=== PATIENT | female | born 1960 ===

== ENCOUNTER 2018-01-12 10:25 | Inpatient (IN) | payer OTHER ==
[2018-01-12 10:37] VITALS: BMI 24.8
[2018-01-12] MEDS ORDERED: Sodium Chloride 0.9% 1,000 ML IV STA (10:55)
[2018-01-12 11:42] LABS: BASO # 0.08 K/mm3 (0.0-2.0); EOS # 0.7 (0.0-0.7); EOS % 8.3 % (1.5-5.0); GRAN # 5.16 (1.4-6.5); GRAN % 63.9 % (50.0-68.0); HEMOGLOBIN 14.2 g/dL (12.0-16.0); LYMPH # 1.8 (1.2-3.4); LYMPH % 22.1 % (22.0-35.0); MEAN CELL VOLUME 87.9 fl (80.0-105.0); MEAN CORPUSCULAR HEMOGLOBIN 28.7 pg (25.0-35.0); MEAN CORPUSCULAR HGB CONC 32.6 g/dl (31.0-37.0); MEAN PLATELET VOLUME 8.9 fl (7.0-11.0); MONO # 0.4 (0.1-0.6); MONO % 4.7 % (1.0-6.0); RBC 4.95 10^6/uL (3.5-6.1); RED CELL DISTRIBUTION WIDTH 13.9 % (11.5-14.5); WHITE BLOOD COUNT 8.1 10^3/uL (4.5-11.0)
[2018-01-12 11:46] LABS: ALB/GLOB RATIO 1.2 (1.1-1.8); ALBUMIN 4.1 g/dL (3.0-4.8); CALCIUM 9.5 mg/dL (8.4-10.5)
--- NOTE | 2018-01-12 11:52 | ED PDOC ---
Arrival/HPI - General Chief Complaint: Back Pain Time Seen by Provider: 01/12/18 10:40 - History of Present Illness Narrative History of Present Illness (Text): 57 y/o female with PMH of gout, HTN, and hypothyroidism presents to the ED c/o left-sided thoracic back pain with radiation to the left chest x 1 week. Pain is intermittent, at times severe, and not associated with movement or breathing. Has been using heating pads for pain without relief. States she saw her PMD Dr. Plata on Sunday and had a normal EKG. Pt was switched to Atenolol for her HTN, which she started on Sunday, taken this morning, unsure of dose. Also admits that her routine bloodwork in October showed a "problem with her kidneys" and she was advised to followup with urology, which she never did. Denies fever, chills, SOB, cough, palpitations, diaphoresis, arm pain, jaw pain, dizziness, vision changes, neck pain, rash, abdominal pain, N/V/D. Past Medical History - Provider Review Nursing Documentation Reviewed: Yes - Reproductive Menopause: Yes - Cardiac Hx Hypertension: Yes - Pulmonary Hx Respiratory Disorders: No - Neurological Hx Neurological Disorder: No - HEENT Hx HEENT Disorder: No - Endocrine/Metabolic Hx Hypothyroidism: Yes - Hematological/Oncological Hx Blood Disorders: No - Integumentary Hx Dermatological Disorder: No - Musculoskeletal/Rheumatological Hx Back Pain: Yes Hx Gout: Yes - Gastrointestinal Hx Gastrointestinal Disorders: No - Genitourinary/Gynecological Hx Genitourinary Disorders: No - Psychiatric Hx Psychophysiologic Disorder: No Hx Substance Use: No - Anesthesia Hx Anesthesia: No Family/Social History - Physician Review Nursing Documentation Reviewed: Yes Family/Social History: No Known Family HX Smoking Status: Never Smoked Hx Alcohol Use: No Hx Substance Use: No Allergies/Home Meds Allergies/Adverse Reactions: Allergies No Known Allergies Allergy (Verified 01/12/18 10:48) Home Medications: Home Meds Medication Instructions Recorded Confirmed Atenolol [Tenormin] 25 mg DAILY 01/12/18 01/12/18 Colchicine [Colcrys] 0.6 mg PO DAILY 01/12/18 01/12/18 Levothyroxine [Synthroid] 75 mcg PO DAILY 01/12/18 01/12/18 Review of Systems - Physician Review All systems were reviewed & negative as marked: Yes - Review of Systems Constitutional: Normal Eyes: Normal ENT: Normal Respiratory: Normal. absent: SOB, Cough Cardiovascular: Chest Pain. absent: Palpitations Gastrointestinal: Normal. absent: Abdominal Pain, Nausea, Vomiting Genitourinary Female: Normal Musculoskeletal: Back Pain. absent: Neck Pain Skin: Normal. absent: Rash Neurological: Normal. absent: Headache, Dizziness Endocrine: Normal Hemo/Lymphatic: Normal Psychiatric: Normal Physical Exam Vital Signs Reviewed: Yes Vital Signs Temp Pulse Resp BP Pulse Ox 01/12/18 10:37 98.1 F 48 L 16 150/83 98 01/12/18 10:36 98.1 F 48 L 16 150/83 98 Temperature: Afebrile Blood Pressure: Normal Pulse: Bradycardic Respiratory Rate: Normal Appearance: Positive for: Well-Appearing, Non-Toxic, Comfortable Pain Distress: None Mental Status: Positive for: Alert and Oriented X 3 - Systems Exam Head: Present: Atraumatic, Normocephalic Pupils: Present: PERRL Extroacular Muscles: Present: EOMI Conjunctiva: Present: Normal Mouth: Present: Moist Mucous Membranes Neck: Present: Normal Range of Motion Respiratory/Chest: Present: Clear to Auscultation, Good Air Exchange. No: Respiratory Distress, Accessory Muscle Use, Wheezes, Decreased Breath Sounds, Rales, Retracting, Rhonchi Cardiovascular: Present: Regular Rate and Rhythm, Normal S1, S2, Peripheal Pulses Present. No: Murmurs Abdomen: No: Tenderness, Distention, Peritoneal Signs Back: Present: Normal Inspection. No: Paraspinal Tenderness Upper Extremity: Present: Normal Inspection, Normal ROM, NORMAL PULSES, Capillary Refill < 2s. No: Cyanosis, Edema Lower Extremity: Present: Normal Inspection, NORMAL PULSES, Normal ROM, Capillary Refill < 2 s. No: Edema Neurological: Present: GCS=15, CN II-XII Intact, Speech Normal, Motor Func Grossly Intact, Normal Sensory Function, Gait Normal Skin: Present: Warm, Dry, Normal Color. No: Rashes Psychiatric: Present: Alert, Oriented x 3, Normal Insight, Normal Concentration, Normal Affect, Normal Mood Medical Decision Making ED Course and Treatment: Initial Plan: * EKG * CBC, CMP * Troponin, CK * UA, culture * Dimer EKG: rate 51; sinus bradycardia; normal intervals; no ST elevations or T wave inversions CXR: no acute disease CBC: wnl CMP: BUN 36 Creat 2.0 Troponin: 0.07 CK: wnl UA: blood, leukesterase, protein Dimer: elevated With elevated Dimer and findings of kidney injury, will get V/Q perfusion scan to r/o PE. V/Q scan results: low risk for PE 15:[address] Guevara, who accepts patient for inpatient admission to remote telemetry with diagnosis of UTI, renal failure, and bradycardia. Recommends renal ultrasound and diet orders, along with treatment of UTI with 1g Rocephin IV. Plan of care discussed with patient and family who agree with decision of admission. Patient verbalizes understanding of discussion. Patient A&Ox3, ambulating with steady gait, vitals stable. - Lab Interpretations Lab Results: 01/12/18 11:11 01/12/18 11:11 Lab Results 01/12/18 11:11: Sodium 142, Potassium 4.7, Chloride 109 H, Carbon Dioxide 22, Anion Gap 15, BUN 36 H, Creatinine 2.0 H, Est GFR ( Amer) 31, Est GFR (Non-Af Amer) 26, Random Glucose 103, Calcium 9.5, Total Bilirubin 0.5, AST 22, ALT 20, Alkaline Phosphatase 90, Troponin I Pending, Total Protein 7.6, Albumin 4.1, Globulin 3.5, Albumin/Globulin Ratio 1.2 01/12/18 11:11: WBC 8.1, RBC 4.95, Hgb 14.2, Hct 43.5, MCV 87.9, MCH 28.7, MCHC 32.6, RDW 13.9, Plt Count 438, MPV 8.9, Gran % 63.9, Lymph % (Auto) 22.1, [place]ie % (Auto) 4.7, Eos % (Auto) 8.3 H, Baso % (Auto) 1.0, Gran # 5.16, Lymph # (Auto) 1.8, Davie # (Auto) 0.4, Eos # (Auto) 0.7, Baso # (Auto) 0.08 - RAD Interpretation Radiology Orders: 01/12/18 10:54 CHEST TWO VIEWS (PA/LAT) [RAD] Stat - Medication Orders Current Medication Orders: Sodium Chloride (Sodium Chloride 0.9%) 1,000 mls @ 999 mls/hr IV .Q1H1M STA Stop: 01/12/18 11:55 Last Admin: 01/12/18 11:14 Dose: 999 mls/hr eMAR Start Stop Document 01/12/18 11:14 BB (Rec: 01/12/18 11:14 BB [id number]) Intravenous Solution Start Date 01/12/18 Start Time 11:10 End Date 01/12/18 End time 12:10 Total Infusion Time 60 Disposition/Present on Arrival - Present on Arrival Any Indicators Present on Arrival: No History of DVT/PE: No History of Uncontrolled Diabetes: No Urinary Catheter: No History of Decub. Ulcer: No History Surgical Site Infection Following: None - Disposition Have Diagnosis and Disposition been Completed?: Yes Diagnosis: Bradycardia, Acute renal failure Disposition: HOSPITALIZED Disposition Time: 15:45 Patient Plan: Admission Patient Problems: Current Active Problems Problem Status Onset Acute renal failure Acute Bradycardia Acute Condition: STABLE
[2018-01-12 11:57] LABS: TROPONIN I 0.07 ng/mL
[2018-01-12 12:12] LABS: FREE T4 1.46 ng/dL (0.78-2.19)
--- NOTE | 2018-01-12 13:01 | RAD ---
HISTORY: chest pain COMPARISON: None available. TECHNIQUE: Chest PA and lateral FINDINGS: LUNGS: Tiny right upper lobe calcified granulomas. 16 mm rounded opacities project over both the left and right upper lobes, appear external to the patient. Biapical pleural thickening. No focal consolidation. Please note that chest x-ray has limited sensitivity for the detection of pulmonary masses. PLEURA: No significant pleural effusion identified. No definite pneumothorax . CARDIOVASCULAR: Heart size appears within normal limits. No atherosclerotic calcification present. OSSEOUS STRUCTURES: No acute osseous abnormality identified. VISUALIZED UPPER ABDOMEN: Unremarkable. OTHER FINDINGS: None. IMPRESSION: No focal consolidation. Small calcified granulomas. Biapical pleural thickening. 16 mm rounded opacities project over both the left and right upper lobes, appear external to the patient. Correlate clinically.
[2018-01-12 13:47] LABS: URINE BILIRUBIN NEGATIVE (NEGATIVE); URINE BLOOD TRACE-INTACT (NEGATIVE); URINE GLUCOSE (UA) NEGATIVE (NEGATIVE); URINE LEUKOCYTE ESTERASE MODERATE Leu/uL (NEGATIVE); URINE PROTEIN 100 mg/dL (<30 mg/dL); URINE UROBILINOGEN 0.2 E.U./dL (<1 E.U./dL)
[2018-01-12 13:52] LABS: URINE APPEARANCE SL CLOUDY (CLEAR); URINE COLOR LIGHT YELLOW (YELLOW)
[2018-01-12 14:52] LABS: URINE BACTERIA NEG (NEG); URINE RBC 0 - 2 /hpf (0-2)
--- NOTE | 2018-01-12 15:16 | NM ---
VQ scan Technique: 30.0 mCi technetium 99-m DTPA. 3.4 mCI technetium 99-m MAA administered intravenously. Comparison: Correlation is made to chest x-ray of same day. Findings: Perfusion images do not show a segmental defect. Activity extends expected margin of the lung periphery. Ventilation images do not show any significant areas of ventilation defects. Mild tracheal activity related to the DTPA incidentally noted. Impression: Low probability for pulmonary embolus.
[2018-01-12] MEDS ORDERED: cefTRIAXone 1 gm 1 GM/100 ML BAG IVPB STA (15:52)
[2018-01-12] MEDS: Sodium Chloride 0.9% 1,000 ML IV SCH (16:53)
[2018-01-12] MEDS: TraMADol/Apap 37.5/325 mg Tab PO PRN (19:15)
--- NOTE | 2018-01-12 22:45 | CARD ---
APPROVED REPORT Date of service: 01/12/2018 EKG Measurement Heart [id number] <Conclusion> Sinus bradycardia Otherwise normal ECG
[2018-01-12 23:20] LABS: TROPONIN I 0.84 ng/mL
[2018-01-13] MEDS: Heparin25000 units/250ml 1/2NS 25,000 UNITS/250 ML BAG IV SCH (01:50)
--- NOTE | 2018-01-13 03:08 | CP.PCM.PN ---
<Noel Teran - Last Filed: 01/13/18 03:12> Subjective - Date & Time of Evaluation Date of Evaluation: 01/13/18 Time of Evaluation: 01:00 - Subjective Subjective: Noel Teran DO, PGY-1 Hospitalist Progress Note for Dr. Dupont Patient was seen and examined after it was noted that troponin had increased from 0.07 to 0.84. At the time of examination, patient states that she still has back pain that radiates to her chest but states it is unchanged from admission. The pain in her chest has not increased since admission. She denies diaphoresis, SOB, nausea/vomiting. Objective - Vital Signs/Intake and Output Vital Signs (last 24 hours): Temp Pulse Resp BP Pulse Ox 98.0 F 48 L 20 156/79 H 97 01/12/18 19:20 01/12/18 22:00 01/12/18 19:20 01/12/18 19:20 01/12/18 19:20 Intake and Output: 01/12/18 01/13/18 18:59 06:59 Intake Total 200 Balance 200 - Medications Medications: Current Medications Acetaminophen (Tylenol 325mg Tab) 650 mg PO Q6H PRN PRN Reason: Pain, Mild (1-3) Amlodipine Besylate (Norvasc) 10 mg PO DAILY LESLEE Clonidine HCl (Catapres) 0.1 mg PO Q4H PRN PRN Reason: SBP>160; DBP>100 Sodium Chloride (Sodium Chloride 0.9%) 1,000 mls @ 100 mls/hr IV .Q10H LESLEE Last Admin: 01/12/18 16:53 Dose: 100 mls/hr Ceftriaxone Sodium (Rocephin 1 Gram Ivpb) 1 gm in 100 mls @ 100 mls/hr IVPB 1600 LESLEE; Protocol Heparin Sodium/Sodium Chloride (Heparin 27445 Units/250ml 1/2 Normal Saline) 25,000 units in 250 mls @ 6.26 mls/hr IV .Q24H LESLEE; Protocol Last Admin: 01/13/18 01:50 Dose: 12 units/kg/hr, 6.26 mls/hr Tramadol/Acetaminophen (Ultracet 37.5/325 Mg) 1 tab PO Q8H PRN PRN Reason: Pain, moderate (4-7) Last Admin: 11/17/18 19:15 Dose: 1 tab - Labs Labs: 01/12/18 11:11 01/12/18 11:11 APTT 37.3 Seconds (25.1-36.5) H 01/13/18 00:35 - Constitutional Appears: Non-toxic, No Acute Distress - Head Exam Head Exam: ATRAUMATIC, NORMOCEPHALIC - Eye Exam Eye Exam: EOMI, Normal appearance, PERRL - ENT Exam ENT Exam: Mucous Membranes Moist - Respiratory Exam Respiratory Exam: Clear to Ausculation Bilateral, NORMAL BREATHING PATTERN. absent: Rales, Rhonchi, Wheezes - Cardiovascular Exam Cardiovascular Exam: REGULAR RHYTHM, RRR, +S1, +S2. absent: Gallop, Rubs, M urmur - Extremities Exam Extremities Exam: Normal Inspection. absent: Pedal Edema - Back Exam Back Exam: Full ROM, paraspinal tenderness, vertebral tenderness - Neurological Exam Neurological Exam: Alert, Awake, Oriented x3 - Psychiatric Exam Psychiatric exam: Normal Affect, Normal Mood - Skin Skin Exam: Dry, Intact, Warm Assessment and Plan - Assessment and Plan (Free Text) Assessment: 57 yo F with PMH of gout, HTN, and hypothyroidism admitted under Dr. Guevara for L sided back pain, acute renal failure, and L sided chest pain is evaluated for increasing troponin. Plan: 1. Increasing troponin Dr. Guevara notified of increasing troponin Requested Dr. Yan cardiology be consulted Dr. Carbajal (covering for Dr. Yan) notified,STAT PTT obtained, then heparin bolus and drip started per Dr. Carbajal recs Continue to monitor next troponin level at 0500 Patient transferred to full telemetry floor ASA 325 mg and plavix 300 mg given at time of notification STAT EKG performed showed no ST or T wave changes, no significant changes from initial EKG Will continue to monitor on telemetry Further recs per Dr. Yan and Dr. Guevara Case and plan were reviewed and discussed with my attending Dr. Kiah Teran, DO IM Resident PGY-1 <Rabia Dupont - Last Filed: 01/13/18 05:35> Objective - Vital Signs/Intake and Output Vital Signs (last 24 hours): Temp Pulse Resp BP Pulse Ox 98.0 F 59 L 20 156/79 H 97 01/12/18 19:20 01/13/18 02:00 01/12/18 19:20 01/12/18 19:20 01/12/18 19:20 Intake and Output: 01/12/18 01/13/18 18:59 06:59 Intake Total 200 Balance 200 - Medications Medications: Current Medications Acetaminophen (Tylenol 325mg Tab) 650 mg PO Q6H PRN PRN Reason: Pain, Mild (1-3) Amlodipine Besylate (Norvasc) 10 mg PO DAILY LESLEE Clonidine HCl (Catapres) 0.1 mg PO Q4H PRN PRN Reason: SBP>160; DBP>100 Sodium Chloride (Sodium Chloride 0.9%) 1,000 mls @ 100 mls/hr IV .Q10H LESLEE Last Admin: 01/12/18 16:53 Dose: 100 mls/hr Ceftriaxone Sodium (Rocephin 1 Gram Ivpb) 1 gm in 100 mls @ 100 mls/hr IVPB 1600 LESLEE; Protocol Heparin Sodium/Sodium Chloride (Heparin 77670 Units/250ml 1/2 Normal Saline) 25,000 units in 250 mls @ 6.26 mls/hr IV .Q24H LESLEE; Protocol Last Admin: 01/13/18 01:50 Dose: 12 units/kg/hr, 6.26 mls/hr Tramadol/Acetaminophen (Ultracet 37.5/325 Mg) 1 tab PO Q8H PRN PRN Reason: Pain, moderate (4-7) Last Admin: 01/12/18 19:15 Dose: 1 tab - Labs Labs: 01/12/18 11:11 01/12/18 11:11 APTT 37.3 Seconds (25.1-36.5) H 01/13/18 00:35 Attending/Attestation - Attestation I have personally seen and examined this patient.: Yes I have fully participated in the care of the patient.: Yes I have reviewed all pertinent clinical information, including history, physical exam and plan: Yes Notes (Text): 01/13/18 05:34 Patient was seen when she was in the ER in bed # 2. Medical record was reviewed. Agree with history , physical examination, assessment and plan. EKG showed Sinus tachycardia. BP was 87/46, recycled one was 100/46,HR 107/min. Admitted to telemetry floor.
[2018-01-13 05:40] LABS: CALCIUM 8.3 mg/dL (8.4-10.5)
[2018-01-13 05:54] LABS: TROPONIN I 0.76 ng/mL
[2018-01-13] MEDS: Sodium Chloride 0.9% 1,000 ML IV SCH ×3 (06:13→22:57)
--- NOTE | 2018-01-13 08:37 | CARD ---
APPROVED REPORT Date of service: 01/13/2018 EKG Measurement Heart [id number] <Conclusion> Marked sinus bradycardia Abnormal ECG
--- NOTE | 2018-01-13 08:52 | CARD ---
APPROVED REPORT Date of service: 01/12/2018 EKG Measurement Heart [id number] <Conclusion> Sinus bradycardia Otherwise normal ECG
--- NOTE | 2018-01-13 10:50 | CON ---
DATE: 01/13/2018 REQUESTING PHYSICIAN: Alondra Guevara MD. REASON FOR CONSULTATION: Possible myocardial infarction and bradycardia. HISTORY OF PRESENT ILLNESS: This is a 57-year-old woman with a history of hypertension, hyperlipidemia, tobacco abuse, and a family history of premature heart disease, who presents to emergency room with complaints of back and chest discomfort for the past several days. She describes her pain as initially sharp. She did not identify any precipitating or relieving factors. She states the pain waxed and waned over the past several days and she finally decided to come to emergency room for evaluation. Initial electrocardiogram was unremarkable and first troponin was negative. Repeat troponin is elevated 0.84. She denies any prior cardiac history. She apparently has a history of renal insufficiency and has been advised Nephrology evaluation in the past. She does admit to intermittent nonsteroidal anti-inflammatory use. She is a smoker of less than a pack per day. She believes her cholesterol was elevated. She is not diabetic. PAST MEDICAL HISTORY: Notable for problems mentioned above. She has had an uneventful in the past. Past history includes history of gout and hypothyroidism. MEDICATIONS AT HOME: Include atenolol, levothyroxine, colchicine. ALLERGIES: NONE. SOCIAL HISTORY: She smokes less than a pack per day. 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 She is . FAMILY HISTORY: Her father has had premature heart disease and one brother has also had cardiac issues in his 40's. REVIEW OF SYSTEMS: The 10-point review of systems is otherwise unremarkable. PHYSICAL EXAMINATION GENERAL: She is a thin, middle-aged woman. VITAL SIGNS: Her blood pressure is 156/80 with a pulse of 56 and sinus. She has had intermittent sinus bradycardia as well as sinus pauses of greater than 4 seconds while sleeping. She is reportedly asymptomatic. Respirations are 16. She is afebrile. HEENT: Normocephalic, atraumatic. NECK: Supple. No JVD noted. CHEST: Clear to auscultation and percussion. HEART: PMI displaced laterally, systolic murmur present in left sternal border. ABDOMEN: Soft and nontender, normoactive bowel sounds. EXTREMITIES: No clubbing, cyanosis, edema. SKIN: Warm and dry. PSYCHIATRIC: Normal mood and affect. NEUROLOGIC: Alert and oriented x3 with no gross motor sensory is appreciable. DIAGNOSTIC DATA: Initial troponin was 0.07, repeat 0.84, followup was 0.76. CK is negative at 72, 80 and 76 respectively. Potassium 4.4, BUN and creatinine 32 and 2.0. White count 8.1, hematocrit 14.2 and 43.5 with a platelet count of 438,000. TSH 1.48. Electrocardiogram reveals sinus bradycardia with inferior T-wave inversions. Chest x-ray reveals normal cardiac silhouette with apical pleural thickening and small calcified granulomas present. IMPRESSION: 1. Chest and back pain, suspicious for cardiac ischemia given pattern and multiple cardiac risk factors. 2. Renal insufficiency, etiology unclear. 3. Sinus pauses, possibly ischemia induced, beta-wandy therapy has been placed on hold. 4. Multiple cardiac risk factors given a family history, hypertension, hyperlipidemia, and tobacco abuse. RECOMMENDATIONS: Serial cardiac enzymes will be obtained. IV heparin has been initiated and will be continued. Aspirin and Plavix therapy have been initiated as well. Beta-wandy therapy and all negative chronotropic agents will be withheld given her evidence of severe bradycardia. An echocardiogram will be obtained. Renal evaluation is in progress. If she has evidence of worsening acute cardiac ischemia, urgent catheterization may be necessary; if she remains stable, this will be deferred pending clarification of her renal status. Risk factor control is advised and smoking abstinence was strongly encouraged. Thank you for this consultation and I will be happy to follow along through her hospital course if needed. Reji Simms MD MTDSolo
--- NOTE | 2018-01-13 13:55 | CON ---
DATE OF CONSULTATION: 01/13/2018 ORTHOPEDIC CONSULTATION HISTORY OF PRESENT ILLNESS: The patient is a 57-year-old female in room 261, bed 2. The patient was admitted for renal failure and some chest pain. She sees the Orthopedics because she has a past history of uric acid with gout, especially of her both big toes and right hand, third digit at the metacarpophalangeal joint, and she is on medications for gout. She has had the gout for about 10 years. She still has Nicolas Lr, who is a doctor for gout, and she does have vague pain in her upper left chest posterior to the shoulder. Shoulder is within normal limits, and no evidence of fracture or bursitis, hence that goes well for all her other joints, and the knees and hips were fine and her elbows. I was asked to see her for a possible gout attack, but there is no gout attack at this time. 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 FINAL DIAGNOSIS: Orthopedically, there is past history of gout with no acute attack so far. We will watch her for that left posterior chest pain, which does not appear orthopedic in origin. Wyatt Hopper DO RON
--- NOTE | 2018-01-13 14:05 | US ---
Date of service: 01/13/2018 PROCEDURE: Ultrasound of the Kidneys HISTORY: RENAL FAILURE COMPARISON: None available. TECHNIQUE: Sonogram of the kidneys. FINDINGS: RIGHT KIDNEY: Measures: 11.1 x 4.2 x 5.6 cm. Innumerable echogenic renal foci with posterior acoustic shadowing consistent with nephrolithiasis. No hydronephrosis. LEFT KIDNEY: Measures: 10.1 x 4.3 x 5.0 cm. Innumerable echogenic renal foci with posterior acoustic shadowing consistent with nephrolithiasis. No hydronephrosis. OTHER FINDINGS: None. IMPRESSION: Evidence of bilateral nephrolithiasis.
--- NOTE | 2018-01-13 14:10 | HP ---
DATE OF EXAM: 01/12/2018 HISTORY OF PRESENT ILLNESS: This 57-year-old female was examined in the [facility] emergency room for admission on the afternoon of Sunday, January 12, 2018. Present for this interview was her daughter and case was reviewed in detail with emergency room nurse practitioner Paulina Clark, registered nurse. The patient presented with left shoulder and left scapular pain. In the emergency room, she was noted to be hypertensive and has a past medical history of chronic hypertension, gout and chronic renal insufficiency. The patient in the emergency room, underwent a chest x-ray and a VQ lung scan that were unremarkable for pulmonary embolism, but on x-ray she was noted to have a tiny right upper lobe calcified granuloma. The patient follows with primary care physician, Dr. Crow Plata, medical physician. She states that recently he adjusted her blood pressure medications and of late her blood pressure has been uncontrolled. 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 The patient denied any substernal chest pressure, diaphoresis, jaw pain or arm pain. She is being admitted for further evaluation of shoulder discomfort, back pain, renal insufficiency and uncontrolled hypertension. OUTPATIENT MEDICATIONS: Included; Colcrys 0.6 mg p.o. daily, Synthroid 75 mcg p.o. daily and atenolol 25 mg p.o. daily. ALLERGIES: THE PATIENT HAS NO KNOWN ALLERGIES TO MEDICATION. SOCIAL HISTORY: Is a nondrinker, nonsmoker and non IV drug misuser. FAMILY HISTORY: Her father of a stroke in his mid 60s and her mother is alive with hypertension and degenerative arthritis. Her siblings have hypertension as well. REVIEW OF SYSTEMS: CONSTITUTIONAL: She denied fever or chills. HEAD: No headache or seizure. EYES: No change in visual acuity. EAR: No hearing loss. THROAT: No swallowing difficulty. NECK: No stiffness. CARDIAC: She has a history of chronic hypertension for over 10 years and states she has been taking blood pressure medication for approximately 5 years. PULMONARY: No cough. No hemoptysis. GI: No hematemesis. No melena. : Renal insufficiency of unclear duration. VASCULAR: No claudication. PSYCHOLOGICAL: No knowledge of depression. ENDOCRINOLOGIC: Hypothyroidism. MUSCULOSKELETAL: Chronic degenerative arthritis and gout. The patient states she is noncompliant with Colcrys because of symptoms of diarrhea. PHYSICAL EXAMINATION: VITAL SIGNS: At the time of my interview, the patient had a temperature of 98.1, respirations 16, pulse 62 and blood pressure 135/75 with a pulse ox of 100% room air. HEAD: Normocephalic and atraumatic. EYES: No icterus. EARS: Clear. THROAT: Noninjected. NECK: Supple. HEART: With S1, S2. LUNGS: Clear. ABDOMEN: Soft. EXTREMITIES: No edema. SKIN: Without rash. NEUROLOGICAL: Intact. PSYCHOLOGICAL: Alert. VASCULAR: Leg is warm to touch. Her right foot had right great toe metatarsal changes of gout as well as her right third left hand digit. LABORATORY DATA: Sodium 142, K 4.7, chloride 109, bicarb 22, BUN 36, creatinine 2.0, estimated GFR 26 mL per minute, sugar 103, calcium 9.5, bilirubin 0.5, AST 22, ALT 20 and alk phos 90. Troponin 0.07. Free T4 of 1.46, TSH 1.48 normal, free T3 of 2.67, low. PT/INR and PTT 37.3. D-dimer 321. Urinalysis showed a 100 mg per decaliter of protein, negative bacteria, positive white blood cells. Chest x-ray was reviewed. There was no infiltrate, effusion or congestive heart failure. EKG was reviewed, it showed sinus bradycardia, otherwise normal. VQ scan was reviewed. It showed low probability for pulmonary embolus. IMPRESSION: This is a 57-year-old female with left shoulder and scapular pain, atypical chest discomfort, chronic hypertension, UTI, asymptomatic bradycardia history of gout and hypothyroidism, now being admitted for further evaluation of the above. PLAN: Admit this patient to the cardiac unit. She will have a consultation called with Dr. Wyatt Hopper from Orthopedics. She will resume Norvasc day 10 mg p.o. daily, clonidine 0.1 mg p.o. every 4 hours p.r.n. accelerated hypertension if systolic blood pressure is greater than 160 or diastolic blood pressure is greater than 100. She will continue on Rocephin 1 g IV every 24 hours pending urine culture and I have ordered 0.9 saline hydration fluid at 100 mL per hour with repeat basic metabolic panel in the a.m. to further assess her renal dysfunction. A Renal ultrasound has been ordered, a heart-healthy renal diet will be ordered as well. Based on clinical progress, additional diagnostic workup will be entertained. Greater than 75 minutes was spent in the care management, review of labs, orders and x-rays and discussion of this patient with her family at the bedside and emergency room staff. All questions were answered. Alondra Guevara MD MTDD
[2018-01-13] MEDS: cefTRIAXone 1 gm 1 GM/100 ML BAG IVPB SCH (16:09)
[2018-01-14] MEDS: Heparin25000 units/250ml 1/2NS 25,000 UNITS/250 ML BAG IV SCH (01:34)
[2018-01-14 06:38] LABS: CALCIUM 8.7 mg/dL (8.4-10.5)
[2018-01-14 07:33] LABS: TROPONIN I 0.33 ng/mL
--- NOTE | 2018-01-14 07:35 | PN ---
DATE: 01/13/2018 SUBJECTIVE: This 57-year-old female remains hospitalized. She was transferred to the cardiac unit late last evening because of concerns of evolving myocardial infarction in the setting of bradycardia. The patient had a repeat EKG last night that was unremarkable and a repeat troponin became elevated to 0.84. This was reviewed with fabric cutter, Dr. Reji Simms and it was decided that the patient would be moved to the cardiac unit. At present, she is lying in her bed and denying any overt chest pain or shortness of breath. However, given her initial presentation of atypical chest pain with back pain and multiple cardiac risk factors, the concern is suspicious for cardiac ischemia. At present, she remains in a sinus rhythm on the lease broker and has been noted to have period of sinus pauses. Her beta wandy has been discontinued since admission and the patient remains hypertensive and will have medications adjusted accordingly. PHYSICAL EXAMINATION: VITAL SIGNS: On physical exam at the present time, the patient was in sinus bradycardia with a temperature of 97, respirations 21, pulse 56 and blood pressure 130/69. HEENT: Head: Normocephalic, atraumatic. Eyes: No icterus. Ears: Clear. Throat: Noninjected. NECK: Supple. HEART: Regular S1, S2. No pathological rubs, murmurs or gallops. LUNGS: Clear. ABDOMEN: Soft. EXTREMITIES: No edema. SKIN: Without rash. NEUROLOGICAL: Intact. PSYCHOLOGICAL: Alert and anxious. VASCULAR: Legs warm to touch. LABORATORY DATA: White count 8100, hemoglobin 14.2, hematocrit 43.5, platelets 438,000. On IV heparin therapy, her PTT is 56.2. Sodium 141, K 4.4, chloride 116, bicarb 21, BUN 32, creatinine 2, random blood sugar is 90, calcium 8.3, second troponin 0.84, third troponin 0.76. Free T3 of 2.67, normal is 2.77-5.27. Urinalysis showed no bacteria, but moderate leukocytes and urine culture showing a gram-negative ariane, identification and sensitivity pending and blood cultures negative to date. IMPRESSION: A 57-year-old female admitted with atypical chest pain, back pain with cardiac risk factors for atherosclerotic heart disease including strong family history, hypertension and now with urinary tract infection, renal insufficiency, degenerative arthritis and gout. PLAN: Plan at present as discussed with the patient; nurse, Jorge Kitchen, registered nurse; Dr. Reji Simms, fabric cutter will be to continue clonidine 0.1 mg p.o. every 4 hours p.r.n. accelerated hypertension if systolic blood pressure greater than 160 or diastolic blood pressure greater than 100. She remains on IV heparin protocol. She continues on Norvasc 10 mg by mouth daily, Plavix 75 mg by mouth daily, Rocephin 1 g IV every 24, 0.9 saline at 100 mL/hour, Tylenol 650 p.o. every 6 hours p.r.n. pain or temperature greater than 101 and Ultracet 1 tablet p.o. every 8 hours p.r.n. severe pain. She continues on a heart-healthy renal diet. She is ordered to have a repeat troponin level and basic metabolic panel in the a.m. An echocardiogram has been ordered as well as continued cardiac monitoring. She is awaiting evaluation by Dr. Wyatt Hopper from Orthopedics and based on her clinical progress, additional diagnostic workup will be entertained. As discussed with Cardiology should the patient experience any further chest pain or unstable hemodynamics, urgent cardiac catheterization will be entertained. This was reviewed in detail with the patient and nursing. Greater than 35 minutes was spent in the care and management, review of labs, orders, x-rays and discussion of the patient's plan of care. All questions were answered. Alondra Guevara MD
--- NOTE | 2018-01-14 07:45 | CP.PCM.PN ---
Subjective - Date & Time of Evaluation Date of Evaluation: 01/14/18 Time of Evaluation: 07:00 - Subjective Subjective: Stable on 2R. Still back discomfort but no chest pain or SOB. V/S noted. S. Marlon 40's PE: Lungs: clear Cor.: S1S2 Abd.: soft Ext.: no edema Neuro.: alert Labs: PTT= 66, Cr.= 1.9 BC X 2 NG at 24 hrs Urine C+S: + GNR Objective - Vital Signs/Intake and Output Vital Signs (last 24 hours): Temp Pulse Resp BP Pulse Ox 97.4 F L 47 L 20 130/72 100 01/14/18 05:45 01/14/18 05:45 01/14/18 05:45 01/14/18 05:45 01/14/18 05:45 Intake and Output: 01/14/18 01/14/18 06:59 18:59 Intake Total 1336 Balance 1336 - Medications Medications: Current Medications Acetaminophen (Tylenol 325mg Tab) 650 mg PO Q6H PRN PRN Reason: Pain, Mild (1-3) Allopurinol (Zyloprim) 100 mg PO DAILY [facility] Amlodipine Besylate (Norvasc) 10 mg PO DAILY [facility] Last Admin: 01/13/18 09:58 Dose: 10 mg Aspirin (Aspirin Chewable) 81 mg PO DAILY [facility] Clonidine HCl (Catapres) 0.1 mg PO Q4H PRN PRN Reason: SBP>160; DBP>100 Clopidogrel Bisulfate (Plavix) 75 mg PO DAILY [facility] Last Admin: 01/13/18 09:58 Dose: 75 mg Sodium Chloride (Sodium Chloride 0.9%) 1,000 mls @ 100 mls/hr IV .Q10H [facility] Last Admin: 01/13/18 22:57 Dose: Not Given Ceftriaxone Sodium (Rocephin 1 Gram Ivpb) 1 gm in 100 mls @ 100 mls/hr IVPB 1600 [facility]; Protocol Last Admin: 01/13/18 16:09 Dose: 100 mls/hr Heparin Sodium/Sodium Chloride (Heparin 85408 Units/250ml 1/2 Normal Saline) 25,000 units in 250 mls @ 6.26 mls/hr IV .Q24H [facility]; Protocol Last Admin: 01/14/18 01:34 Dose: Not Given Tramadol/Acetaminophen (Ultracet 37.5/325 Mg) 1 tab PO Q8H PRN PRN Reason: Pain, moderate (4-7) Last Admin: 01/12/18 19:15 Dose: 1 tab - Labs Labs: 01/12/18 11:11 01/14/18 05:20 APTT 66.0 Seconds (25.1-36.5) H 01/14/18 06:35 Assessment and Plan - Assessment and Plan (Free Text) Assessment: Back/Shoulder/Chest Pain + trops Abn. ECG Sinus Bradycardia UTI HBP HLD Smoker Gout Hypothyroidism Renal Stones FH Stroke and Heart Disease Plan: Check AM ECG and trop. Echo Continue ASA, Plavix, IV heparin, IVF. Add atorvastatin Hold beta blockers in view of bradycardia AB for UTI Cardiac cath: increased risk due to renal dysfunction: will discuss timing > soon. Pre-cath: IVF, Mucomyst. As per Dr. Guevara Monitor: I/O, renal fx., PTTs, sats., trops., etc.
[2018-01-14 08:11] LABS: HDL CHOLESTEROL 38 mg/dL (29-60)
[2018-01-14 08:22] LABS: LDL CHOLESTEROL 139 mg/dL (0-129)
[2018-01-14] MEDS: Sodium Chloride 0.9% 1,000 ML IV SCH ×3 (08:32→20:56)
--- NOTE | 2018-01-14 13:28 | PN ---
DATE: 01/14/2018 SUBJECTIVE: This 57-year-old female was examined on the cardiac conway of the [facility] [place] on the morning of 01/14/2018. Her case was reviewed in detail with nurse, Jodi Gleason, registered nurse and Dr. Pancho Yan, floor layer apprentice. The patient denies any active fever, chills or chest pain, but has an abnormal troponin, EKG and strong cigarette smoking history that makes her high risk for atherosclerotic heart disease. As discussed with Dr. Yan, the patient is being prepped for cardiac cath on the morning of 01/16/2018. Given her renal insufficiency, she will need IV fluid hydration and pericath protocol with IV bicarb, IV Lasix, oral potassium and IV mannitol. This was explained in detail with the patient by myself and Dr. Yna and the patient is in agreement with the proposed cardiac cath. At present, she denies any fever, chills, chest pain, shortness of breath and is tolerating adjustment of antihypertensive medication, but has persistent bradycardia despite the discontinuation of her atenolol beta-wandy 48 hours ago. PHYSICAL EXAMINATION: GENERAL: She is in a normal sinus rhythm to sinus bradycardia rhythm on the personnel monitor. VITAL SIGNS: Her temperature is 97.4, respirations 20, pulse 47 and blood pressure 130/70 with a pulse ox of 100% room air. HEENT: Head, normocephalic and atraumatic. Eyes, no icterus. Ears clear. Throat noninjected. NECK: Supple. HEART: Regular S1 and S2. No pathological rubs, murmurs, gallops. LUNGS: Clear. ABDOMEN: Soft. EXTREMITIES: No edema. SKIN: Without rash. NEUROLOGICAL: Intact. PSYCHOLOGICAL: Alert and oriented x3. VASCULAR: Legs warm to touch. LABORATORY DATA: White count 8100, hemoglobin 14.2, hematocrit 43.5, platelets 438,000. PTT is 66 on IV heparin protocol. Sodium 143, K 4.5, chloride 119, bicarb 19, BUN 26, creatinine 1.9, estimated GFR 27 mL per minute. Sugar 85, uric acid 9.4, calcium 8.7. Troponin 0.84, 0.76, and 0.33. Cholesterol 199, triglycerides 178, LDL 139, HDL 38. Urinalysis showed no bacteria. Blood culture showed no growth. Urine culture is growing Morganella morganii with sensitivities to Rocephin, ciprofloxacin and Maxipime. IMPRESSION: A 57-year-old female admitted with chest pain, back pain and found to have urinary tract infection, bradycardia, uncontrolled hypertension, chronic renal failure stage IV, non-nephrotic range proteinuria, urinary tract infection with Morganella morganii, hyperlipidemia and chronic gout. PLAN: The patient will continue on Ecotrin 81 mg p.o. daily, clonidine 0.1 mg p.o. every 4 hours p.r.n. accelerated hypertension if systolic blood pressure should be greater than 160 or diastolic blood pressure should be greater than 100. She continues on IV heparin protocol. She is ordered to have Lipitor increased to 40 mg p.o. at dinnertime, Norvasc 10 mg p.o. daily, Plavix 75 mg p.o. daily, Rocephin 1 g IV every 24 hours, 0.9 saline at 100 mL per hour, Zyloprim 100 mg p.o. daily, Tylenol 650 p.o. every 6 hours p.r.n. pain or temperature greater than 101, and the patient will receive Ultracet one tablet p.o. every 8 hours p.r.n. severe pain. She continues to have PTT levels monitored as per heparin protocol. She will have a basic metabolic panel repeated in the a.m. Her case was reviewed in detail with Dr. Wyatt Hopper from Orthopedics who feels that her back and shoulder pain is sales representative printing of non-orthopedic issues and he concurs with cardiac workup as outlined including cardiac cath on schedule as per Cardiology. Greater than 35 minutes was spent in the care management, review of labs, orders, x-rays and outlining of treatment plan for this patient today with nurse, Jodi Gleason. All questions were answered. Alondra Guevara MD MTDD
[2018-01-14] MEDS: TraMADol/Apap 37.5/325 mg Tab PO PRN (13:44)
[2018-01-14] MEDS: cefTRIAXone 1 gm 1 GM/100 ML BAG IVPB SCH (16:52)
[2018-01-15] MEDS: Heparin25000 units/250ml 1/2NS 25,000 UNITS/250 ML BAG IV SCH (00:57)
[2018-01-15] MEDS: Sodium Chloride 0.9% 1,000 ML IV SCH ×4 (04:08→17:05)
[2018-01-15 06:31] LABS: INR 0.91; PROTHROMBIN TIME 10.5 SECONDS (9.4-12.5)
[2018-01-15 06:42] LABS: CALCIUM 8.8 mg/dL (8.4-10.5)
[2018-01-15 06:58] LABS: CALCIUM 8.8 mg/dL (8.4-10.5)
[2018-01-15 07:30] LABS: TROPONIN I 0.24 ng/mL
--- NOTE | 2018-01-15 07:48 | CP.PCM.PN ---
Subjective - Date & Time of Evaluation Date of Evaluation: 01/15/18 Time of Evaluation: 07:00 - Subjective Subjective: Stable on 2R. She feels OK. No CP, Back Pain, SOB. V/S noted. S. Marlon 40's PE: Lungs: clear Cor.: S1S2 Abd.: soft Ext.: no edema Neuro.: alert Labs noted: Trop. = 0.24, Cr.= 1.8, PT/INR OK, PTT pending ECG 01/13: S. marlon = 48, NSSTW changes BC X 2 NG at 48 hrs Urine C+S: + Morg. Morganii Echo: Nl LV fx. See report. Objective - Vital Signs/Intake and Output Vital Signs (last 24 hours): Temp Pulse Resp BP Pulse Ox 97.5 F L 67 20 118/57 L 97 01/15/18 05:38 01/15/18 05:38 01/15/18 05:38 01/15/18 05:38 01/15/18 05:38 Intake and Output: 01/15/18 01/15/18 06:59 18:59 Intake Total 2352 Output Total 5 Balance 2347 - Medications Medications: Current Medications Acetaminophen (Tylenol 325mg Tab) 650 mg PO Q6H PRN PRN Reason: Pain, Mild (1-3) Allopurinol (Zyloprim) 100 mg PO DAILY [facility] Last Admin: 01/14/18 09:53 Dose: 100 mg Amlodipine Besylate (Norvasc) 10 mg PO DAILY [facility] Last Admin: 01/14/18 09:53 Dose: 10 mg Aspirin (Aspirin Chewable) 81 mg PO DAILY [facility] Last Admin: 01/14/18 09:53 Dose: 81 mg Atorvastatin Calcium (Lipitor) 20 mg PO DIN [facility] Last Admin: 01/14/18 16:52 Dose: 20 mg Clonidine HCl (Catapres) 0.1 mg PO Q4H PRN PRN Reason: SBP>160; DBP>100 Last Admin: 01/14/18 16:52 Dose: 0.1 mg Clopidogrel Bisulfate (Plavix) 75 mg PO DAILY [facility] Last Admin: 01/14/18 09:53 Dose: 75 mg Furosemide (Lasix) 20 mg IVP ONCE ONE Stop: 01/16/18 07:01 Hydrochlorothiazide (Hydrodiuril) 25 mg PO DAILY [facility] Last Admin: 01/14/18 13:44 Dose: 25 mg Sodium Chloride (Sodium Chloride 0.9%) 1,000 mls @ 100 mls/hr IV .Q10H [facility] Last Admin: 01/15/18 06:47 Dose: 100 mls/hr Ceftriaxone Sodium (Rocephin 1 Gram Ivpb) 1 gm in 100 mls @ 100 mls/hr IVPB 1600 [facility]; Protocol Last Admin: 01/14/18 16:52 Dose: 100 mls/hr Heparin Sodium/Sodium Chloride (Heparin 05625 Units/250ml 1/2 Normal Saline) 25,000 units in 250 mls @ 6.26 mls/hr IV .Q24H [facility]; Protocol Last Admin: 01/15/18 00:57 Dose: 9 units/kg/hr, 4.695 mls/hr Mannitol (Mannitol) 6.25 gm IV ONCE ONE Stop: 01/16/18 09:01 Potassium Chloride (K-Dur 20 Meq Er Tab) 20 meq PO ONCE ONE Stop: 01/16/18 07:01 Sodium Bicarbonate (Sodium Bicarbonate 8.4% (50 Meq) Syringe) 50 meq IVP ONCE ONE Stop: 01/16/18 07:01 Tramadol/Acetaminophen (Ultracet 37.5/325 Mg) 1 tab PO Q8H PRN PRN Reason: Pain, moderate (4-7) Last Admin: 01/14/18 13:44 Dose: 1 tab - Labs Labs: 01/12/18 11:11 01/15/18 06:00 PT 10.5 SECONDS (9.4-12.5) 01/15/18 06:00 INR 0.91 01/15/18 06:00 APTT 66.0 Seconds (25.1-36.5) H 01/14/18 06:35 Assessment and Plan - Assessment and Plan (Free Text) Assessment: Back/Shoulder/Chest Pain + trops Abn. ECG Sinus Bradycardia UTI HBP HLD Smoker Gout Hypothyroidism Renal Stones FH Stroke and Heart Disease Plan: Continue ASA, Plavix, IV heparin, IVF atorvastatin Hold beta blockers in view of bradycardia AB for UTI Cardiac cath: increased risk due to renal dysfunction. scheduled for tomorow AM. Case D/W Katie Guevara and Demi. I spoke to her employer (at her request) and her daughter yesterday. Pre-cath: IVF, Mucomyst, etc. As per Dr. Guevara Additional recs as per cath results.
--- NOTE | 2018-01-15 08:39 | CARD ---
APPROVED REPORT Date of service: 01/14/2018 EXAM: Two-dimensional and M-mode echocardiogram with Doppler and color Doppler. Other Information Quality : AverageRhythm : INDICATION Chest and Back Pain, + trops, NSTEMI 2D DIMENSIONS Left Atrium (2D)3.3 (1.6-4.0cm)IVSd0.9 (0.7-1.1cm) LVDd4.2 (3.9-5.9cm)PWd1.1 (0.7-1.1cm) LVDs2.9 (2.5-4.0cm)FS (%) 31.1 % LVEF (%)59.0 (>50%) M-Mode DIMENSIONS Aortic Root2.40 (2.2-3.7cm)Aortic Cusp Exc.1.70 (1.5-2.0cm) Aortic Valve AoV Peak Utltidoe183.0cm/s Mitral Valve MV E Zkbhkpto870.0cm/sMV A Riadiufo39.4cm/sE/A ratio1.3 TDI E/Lateral E'0.0E/Medial E'0.0 LEFT VENTRICLE The left ventricle is normal size. There is normal left ventricular wall thickness. The left ventricular function is normal. The left ventricular ejection fraction is within the normal range. There is normal LV segmental wall motion. ATRIA The left atrium size is normal. The right atrium size is normal. The interatrial septum is intact with no evidence for an atrial septal defect. AORTIC VALVE The aortic valve is normal in structure. There is trace aortic regurgitation. MITRAL VALVE The mitral valve is normal in structure. The mitral valve is normal in structure. Mitral regurgitation is mild. TRICUSPID VALVE The tricuspid valve is normal in structure. There is trace tricuspid regurgitation. PULMONIC VALVE The pulmonary valve is normal in structure. GREAT VESSELS The aortic root is normal in size. PERICARDIAL EFFUSION There is no pericardial effusion. <Conclusion> The left ventricle is normal size. There is normal left ventricular wall thickness. The left ventricular function is normal. Mitral regurgitation is mild.
--- NOTE | 2018-01-15 11:39 | PN ---
DATE: 01/15/2018 SUBJECTIVE: This 57-year-old female was examined at her bedside on the cardiac conway at the [facility] on the morning of 01/15/2018. She remains in a sinus bradycardia rhythm on the monitoring and evaluation advisor. She does complain of periods of lightheadedness, especially when lying down in the setting of bradycardia. The patient's atenolol has been withheld since admission and the patient is being readied for cardiac cath in the a.m. She denied any fever, chills, chest pain or shortness of breath. PHYSICAL EXAMINATION: VITAL SIGNS: Temperature 97.5, respirations 20, pulse 67 and blood pressure 118/57 with a pulse ox of 97% room air. HEENT: Head: Normocephalic, atraumatic. Eyes: No icterus. Ears: Clear. Throat: Noninjected. NECK: Supple. HEART: Regular S1, S2. LUNGS: Clear. ABDOMEN: Soft. EXTREMITIES: No edema. SKIN: Without rash. NEUROLOGICAL: Intact. PSYCHOLOGICAL: Alert and anxious. VASCULAR: Legs warm to touch. LABORATORY DATA: White count 8100, hemoglobin 14.2, hematocrit 43.5, platelets 438,000. PTT 66.0, on IV heparin. PT/INR 0.91. Sodium 143, K 4.4, chloride 119, bicarb 19, BUN 22, creatinine 1.8. Estimated GFR 29 mL per minute. Calcium 8.8. Troponin is down to 0.24. Cholesterol 199, triglycerides 178, LDL 139, HDL 38. Urine culture shows Morganella morganii sensitive to Rocephin. Blood cultures show no growth. IMPRESSION: A 57-year-old female admitted with accelerated hypertension and chest pain. I did review her 2-D echocardiogram dated 01/15/2018. It shows her left ventricle is normal in size with normal left ventricular wall thickness. Her left ventricular function is normal and she does have mild mitral regurgitation. The patient also has chronic renal insufficiency stage III, hyperlipidemia. She is a cigarette smoker and has degenerative arthritis and gout. PLAN: At present is to continue Ecotrin, clonidine p.r.n. accelerated hypertension, IV heparin, hydrochlorothiazide for her nephrolithiasis prevention, Lipitor, Norvasc, Plavix, IV Rocephin, Tylenol, p.r.n. Ultracet p.r.n. and Zyloprim daily. Based on the results of cardiac angiogram, additional diagnostic workup will be entertained. All of the above was discussed in detail with the patient at bedside. All questions were answered. Greater than 35 minutes was spent in the care management, review of labs, orders and x-rays and outlining of treatment protocol for this patient today as well as discussion of this patient with her nurse, Jodi Gleason. All questions were answered. Alondra Guevara MD
[2018-01-15] MEDS: cefTRIAXone 1 gm 1 GM/100 ML BAG IVPB SCH (17:05)
[2018-01-16] MEDS: Heparin25000 units/250ml 1/2NS 25,000 UNITS/250 ML BAG IV SCH (02:35)
[2018-01-16] MEDS: Sodium Chloride 0.9% 1,000 ML IV SCH ×3 (02:36→23:26)
[2018-01-16] MEDS: TraMADol/Apap 37.5/325 mg Tab PO PRN ×2 (02:43→17:18)
[2018-01-16 06:34] LABS: CALCIUM 8.9 mg/dL (8.4-10.5)
[2018-01-16] MEDS ORDERED: Sodium Bicarbonate (8.4%) 50 Meq Syringe IVP ONE (07:00)
[2018-01-16] MEDS ORDERED: Potassium Chloride 20 mEq ER Tab PO ONE (07:00)
[2018-01-16] MEDS ORDERED: Lidocaine 2% Inj (20ml) ONE (07:30)
[2018-01-16] MEDS ORDERED: Phenylephrine 10 mg/ml Inj ONE (07:30)
[2018-01-16] MEDS ORDERED: Nitroglycerin 50mg in D5W 50 MG/250 ML BOTTLE IV ONE (07:31)
[2018-01-16] MEDS ORDERED: Midazolam 2 MG/2 ML VIAL ONE ×2 (07:39→07:52)
[2018-01-16] MEDS ORDERED: Iodixanol 320 MG/ML 100 ML BOTTLE IV ONE (07:48)
[2018-01-16] MEDS ORDERED: Iohexol 350mgl/ml 50 ML ONE (07:48)
[2018-01-16] MEDS ORDERED: Iodixanol 320 MG/ML 200 ML BOTTLE IV ONE (07:48)
[2018-01-16] MEDS ORDERED: Eptifibatide 0.75 mg/ml 75 MG/100 ML BOTTLE IV ONE (08:11)
[2018-01-16] MEDS ORDERED: Eptifibatide 20 mg/10mL Inj IVP ONE (08:12)
[2018-01-16] MEDS: Eptifibatide 0.75 mg/ml 75 MG/100 ML BOTTLE IV SCH ×2 (08:14→23:22)
[2018-01-16] MEDS ORDERED: Morphine 2 mg/ml ISec ONE (08:16)
[2018-01-16] MEDS ORDERED: Mannitol 12.5 gm/50 ml Inj IV ONE (09:00)
--- NOTE | 2018-01-16 09:45 | PN ---
DATE: 01/16/2018 SUBJECTIVE: This 57-year-old female is awaiting cardiac cath this morning and denies any active fever, chills, chest pain or shortness of breath. PHYSICAL EXAMINATION: VITAL SIGNS: Her temperature is 97.6, respirations 18, pulse 52 and blood pressure 141/76 with pulse ox 100% on room air. HEENT: Head: Normocephalic, atraumatic. Eyes: No icterus. NECK: Supple. HEART: S1 and S2. LUNGS: Clear. ABDOMEN: Soft. EXTREMITIES: No edema. SKIN: Without rash. NEUROLOGICAL: Intact. PSYCHOLOGICAL: Alert. VASCULAR: Legs warm to touch. LABORATORY DATA: White count 8100, hemoglobin 14.2, hematocrit 43.5, platelets 438,000. PTT is 65.2, on IV heparin. Sodium 143, K 3.9, chloride 119, bicarb 19, BUN 18, creatinine 1.7, random blood sugar 83. Urine culture showing Morganella morganii urinary tract infection sensitive to IV Rocephin, oral Cipro oral Bactrim. Blood culture showed no growth to date. IMPRESSION: A 57-year-old female admitted with accelerated hypertension, chronic renal failure stage 3, history of gout, nephrolithiasis, hyperlipidemia, degenerative arthritis and anxiety neurosis and chronic hypothyroidism. PLAN: The plan is to proceed with cardiac cath today. Based on clinical findings, additional diagnostic workup will be entertained. It should be noted the patient is desirous of additional renal workup of her renal dysfunction as an outpatient, but on her urinalysis does not have proteinuria suggestive of nephrosis and her renal insufficiency is most likely on the basis of chronic hypertension. All of the above has been discussed with the patient and Dr. Simms and medications will be adjusted for this patient post cardiac cath. Alondra Guevara MD RON
--- NOTE | 2018-01-16 10:25 | PN ---
DATE: 01/16/2018 SUBJECTIVE: The patient is seen lying on a stretcher in the lab scientist. She is scheduled for a cardiac catheterization this morning. She is anxious, but denies any chest pain or dyspnea. CURRENT MEDICATIONS: Include IV heparin, Ecotrin, Lipitor, Plavix, Norvasc, Rocephin and allopurinol. OBJECTIVE: GENERAL: She is a middle-aged woman who appears anxious but comfortable. VITAL SIGNS: Her blood pressure is 140/76 with a pulse of 50 and respirations are 14. HEENT: No JVD. CHEST: Clear to auscultation and percussion. HEART: PMI in normal position. No pathological murmurs or gallops noted. ABDOMEN: Soft and nontender. Normoactive bowel sounds. EXTREMITIES: No edema. LABORATORY DATA: Potassium is 3.9, BUN and creatinine 18 and 1.7. PTT 65. IMPRESSION: Recent non-ST segment elevation myocardial infarction. RECOMMENDATION: The patient is going to have cardiac catheterization, possible coronary intervention this morning based upon her angiographic results. Continued risk factor control is advised. Further recommendations will be based on the results of catheterization. We will continue to follow along as needed. Reji Simms MD MTDD
[2018-01-16] MEDS: Tmp-Smz 400 mg-80 mg SS Tab PO SCH ×2 (11:00→20:53)
--- NOTE | 2018-01-16 11:35 | CP.PCM.CON ---
<Son Carlson - Last Filed: 01/16/18 14:42> History of Present Illness - History of Present Illness History of Present Illness: Son Carlson, PGY1 ICU Consult note for Dr. Bustamante Patient is a 57 y/o female with PMH of gout, HTN, tobacco use, and hypothyroidism who presented to the ED (01/12) c/o left-sided, sharp thoracic back pain with radiation to the left chest x 1 week in duration. Patient also presented with hypertension. Cardiology was consulted for evaluation. EKG on admission showed sinus bradycardia with ischemic changes - inferior T wave inversions. Patient treated for NSTEMI. IV heparin was started along with ASA/Plavix administration. Given the bradycardia, patient was not started on betablocker. Echo (01/14) showed EF 59% with no wall motion abnormalities or acute changes. Given patient's cardiac risk factors and ischemic changes, patient went for cardiac cath on 01/16. Patient had stent placement in [facility] due to critical stenosis/lesion. Right groin dressing was placed, no bleeding/hematoma was noted after procedure. Patient admitted to ICU for monitoring s/p cardiac cath. Patient seen and examined in the ICU. Denies fevers, chills, cp, sob, palpitations, nausea, vomiting, diarrhea, numbness/tingling of extremities. Patient does endorse mild tenderness at the R- groin cath site and a mild headache. Current vital signs in ICU: Temp 97.6, HR 53, BP 114/41, RR18, SaO2 98%. A full 12 point ROS was conducted and unremarkable except as stated above. PMHx: gout, HTN, tobacco use, and hypothyroidism Meds: atenolol, levothyroxine, colchicine Allergies: none SocialHx: smokes less than 1 PPD. 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 FHx: premature heart disease in father and brother with cardiac issues. Review of Systems - Review of Systems All systems: reviewed and no additional remarkable complaints except (as per HPI.) Past Patient History - Past Social History Smoking Status: Never Smoked - CARDIAC Hx Hypertension: Yes - PULMONARY Hx Respiratory Disorders: No - NEUROLOGICAL Hx Neurological Disorder: No - HEENT Hx HEENT Problems: No - RENAL Hx Renal Failure: Yes - ENDOCRINE/METABOLIC Hx Hypothyroidism: Yes - HEMATOLOGICAL/ONCOLOGICAL Hx Blood Disorders: No - INTEGUMENTARY Hx Dermatological Problems: No - MUSCULOSKELETAL/RHEUMATOLOGICAL Hx Back Pain: Yes Hx Gout: Yes - GASTROINTESTINAL Hx Gastrointestinal Disorders: No - GENITOURINARY/GYNECOLOGICAL Hx Genitourinary Disorders: No - PSYCHIATRIC Hx Psychophysiologic Disorder: No Hx Substance Use: No - SURGICAL HISTORY Hx Surgeries: No - ANESTHESIA Hx Anesthesia: No Meds Allergies/Adverse Reactions: Allergies Allergy/AdvReac Type Severity Reaction Status Date / Time No Known Allergies Allergy Verified 01/12/18 10:48 - Medications Medications: Current Medications Acetaminophen (Tylenol 325mg Tab) 650 mg PO Q6H PRN PRN Reason: Pain, Mild (1-3) Allopurinol (Zyloprim) 100 mg PO DAILY [facility] Last Admin: 01/16/18 10:59 Dose: 100 mg Alprazolam (Xanax) 0.25 mg PO BID PRN PRN Reason: Anxiety Stop: 01/23/18 08:32 Amlodipine Besylate (Norvasc) 10 mg PO DAILY [facility] Last Admin: 01/16/18 10:59 Dose: 10 mg Aspirin (Ecotrin) 81 mg PO DAILY [facility] Last Admin: 01/16/18 10:58 Dose: 81 mg Atorvastatin Calcium (Lipitor) 40 mg PO DIN [facility] Clonidine HCl (Catapres) 0.1 mg PO Q4H PRN PRN Reason: SBP>160; DBP>100 Last Admin: 01/14/18 16:52 Dose: 0.1 mg Clopidogrel Bisulfate (Plavix) 75 mg PO DAILY [facility] Last Admin: 01/16/18 10:58 Dose: 75 mg Docusate Sodium (Colace) 100 mg PO BID [facility] Last Admin: 01/16/18 10:59 Dose: 100 mg Hydrochlorothiazide (Hydrodiuril) 25 mg PO DAILY [facility] Last Admin: 01/16/18 10:58 Dose: 25 mg Sodium Chloride (Sodium Chloride 0.9%) 1,000 mls @ 100 mls/hr IV .Q10H [facility] Last Admin: 01/16/18 08:30 Dose: 100 mls/hr Eptifibatide (Integrilin) 75 mg in 100 mls @ 8.782 mls/hr IV .[id number] [facility]; Protocol Stop: 01/16/18 20:46 Levothyroxine Sodium (Synthroid) 75 mcg PO 0600 [facility] Tramadol/Acetaminophen (Ultracet 37.5/325 Mg) 1 tab PO Q8H PRN PRN Reason: Pain, moderate (4-7) Last Admin: 01/16/18 02:43 Dose: 1 tab Trimethoprim/Sulfamethoxazole (Bactrim Ss Tab) 1 tab PO BID [facility]; Protocol Last Admin: 01/16/18 11:00 Dose: 1 tab Zolpidem Tartrate (Ambien) 5 mg PO HS PRN PRN Reason: Insomnia Physical Exam - Constitutional Appears: No Acute Distress - Head Exam Head Exam: ATRAUMATIC, NORMAL INSPECTION, NORMOCEPHALIC - Eye Exam Eye Exam: EOMI, Normal appearance, PERRL Pupil Exam: NORMAL ACCOMODATION, PERRL - ENT Exam ENT Exam: Mucous Membranes Moist, Normal Exam - Neck Exam Neck exam: Positive for: Normal Inspection - Respiratory Exam Respiratory Exam: Clear to Auscultation Bilateral, NORMAL BREATHING PATTERN. absent: Rales, Rhonchi, Wheezes - Cardiovascular Exam Cardiovascular Exam: REGULAR RHYTHM, +S1, +S2 - GI/Abdominal Exam GI & Abdominal Exam: Normal Bowel Sounds, Soft. absent: Firm, Guarding, Organomegaly, Rigid, Tenderness - Exam Additional comments: R-groin - s/p cath site. Dressing in place. No hematoma or bleed is noted. - Extremities Exam Extremities exam: Positive for: full ROM, normal inspection, pedal pulses present (Distal pulses are +2 bilateral lower extremity ). Negative for: calf tenderness, pedal edema, tenderness - Back Exam Back exam: NORMAL INSPECTION - Neurological Exam Neurological exam: Alert, Oriented x3 - Skin Skin Exam: Dry, Intact, Normal Color, Warm Results - Vital Signs Recent Vital Signs: Last Vital Signs Temp 97.6 F 01/16/18 06:00 Pulse 53 L 01/16/18 10:11 Resp 18 01/16/18 10:11 BP 114/41 L 01/16/18 10:59 Pulse Ox 98 01/16/18 10:11 - Labs Result Diagrams: 01/12/18 11:11 01/16/18 06:00 Labs: Laboratory Results - last 24 hr 01/15/18 01/16/18 01/16/18 13:25 06:00 06:00 APTT 63.1 H 65.2 H Sodium 143 Potassium 3.9 Chloride 119 H Carbon Dioxide 19 L Anion Gap 9 L BUN 18 Creatinine 1.7 H Est GFR ( Amer) 38 Est GFR (Non-Af Amer) 31 Random Glucose 83 Calcium 8.9 Assessment & Plan - Assessment and Plan (Free Text) Assessment: Patient is a 57 y/o female with PMH of gout, HTN, tobacco use, and hypothyroidi sm who presented to the ED (01/12) c/o left-sided, sharp thoracic back pain with radiation to the left chest x 1 week in duration. Patient is s/p cardiac cath with a pRCA stent placement due to critical stenosis/lesion. Patient will be monitored in the ICU. Plan: Neuro: - AAOx3 - c/w Tylenol prn for tension headache Cardio: - s/p cardiac cath with pRCA stent placement due to critical stenosis/lesion. Monitor patient in the ICU. Follow up recommendations as per cardiology. - Post-cath protocol: bleeding precautions, assess cath site, assess vitals, monitor distal pulses, HOB elevation, and immobilize extremity. - c/w ASA, Plavix, statin - c/w integrilin - Fluids NS @ 100 mls/hr - Monitor H/H - Maintain MAP > 65 - Normotensive - c/w blood pressure medications. However, avoid beta-blockers given patient's bradycardia - On admission, serial troponins positive with EKG changes indicating ischemia, inferior T wave inversions Pulm: - Maintain SaO2 > 92% - Saturating well on room air, resting comfortably GI: - GI ppx - Diet: HHD Renal: - No acute issues at this time - BUN/Cr is 18/1.7 Heme: - DVT ppx Endo: - c/w synthroid; Hx of hypothyroidism ID - c/w Bactrim for antibiotic coverage - Patient's UCx was positive for Morganii Dispo: Monitor patient in the ICU s/p cardiac cath with stent placement at the pRCA. Case was discussed and reviewed with Attending Physician, Dr. Bustamante. <David Bustamante - Last Filed: 01/16/18 16:09> Meds - Medications Medications: Current Medications Acetaminophen (Tylenol 325mg Tab) 650 mg PO Q6H PRN PRN Reason: Pain, Mild (1-3) Allopurinol (Zyloprim) 100 mg PO DAILY [facility] Last Admin: 01/16/18 10:59 Dose: 100 mg Alprazolam (Xanax) 0.25 mg PO BID PRN PRN Reason: Anxiety Stop: 01/23/18 08:32 Amlodipine Besylate (Norvasc) 10 mg PO DAILY [facility] Last Admin: 01/16/18 10:59 Dose: 10 mg Aspirin (Ecotrin) 81 mg PO DAILY [facility] Last Admin: 01/16/18 10:58 Dose: 81 mg Atorvastatin Calcium (Lipitor) 40 mg PO DIN [facility] Clonidine HCl (Catapres) 0.1 mg PO Q4H PRN PRN Reason: SBP>160; DBP>100 Last Admin: 01/14/18 16:52 Dose: 0.1 mg Clopidogrel Bisulfate (Plavix) 75 mg PO DAILY [facility] Last Admin: 01/16/18 10:58 Dose: 75 mg Docusate Sodium (Colace) 100 mg PO BID [facility] Last Admin: 01/16/18 10:59 Dose: 100 mg Hydrochlorothiazide (Hydrodiuril) 25 mg PO DAILY [facility] Last Admin: 01/16/18 15:22 Dose: Not Given Sodium Chloride (Sodium Chloride 0.9%) 1,000 mls @ 100 mls/hr IV .Q10H [facility] Last Admin: 01/16/18 08:30 Dose: 100 mls/hr Eptifibatide (Integrilin) 75 mg in 100 mls @ 8.782 mls/hr IV .[id number] [facility]; Protocol Stop: 01/16/18 20:46 Last Admin: 01/16/18 08:14 Dose: 8.782 mls/hr Levothyroxine Sodium (Synthroid) 75 mcg PO 0600 [facility] Pantoprazole Sodium (Protonix Ec Tab) 40 mg PO 0600 [facility] Tramadol/Acetaminophen (Ultracet 37.5/325 Mg) 1 tab PO Q8H PRN PRN Reason: Pain, moderate (4-7) Last Admin: 01/16/18 02:43 Dose: 1 tab Trimethoprim/Sulfamethoxazole (Bactrim Ss Tab) 1 tab PO BID [facility]; Protocol Last Admin: 01/16/18 11:00 Dose: 1 tab Zolpidem Tartrate (Ambien) 5 mg PO HS PRN PRN Reason: Insomnia Results - Vital Signs Recent Vital Signs: Last Vital Signs Temp 97.6 F 01/16/18 06:00 Pulse 60 01/16/18 15:59 Resp 21 01/16/18 15:59 BP 112/64 01/16/18 16:00 Pulse Ox 98 01/16/18 15:59 - Labs Result Diagrams: 01/12/18 11:11 01/16/18 06:00 Labs: Laboratory Results - last 24 hr 01/16/18 01/16/18 06:00 06:00 APTT 65.2 H Sodium 143 Potassium 3.9 Chloride 119 H Carbon Dioxide 19 L Anion Gap 9 L BUN 18 Creatinine 1.7 H Est GFR ( Amer) 38 Est GFR (Non-Af Amer) 31 Random Glucose 83 Calcium 8.9 Attending/Attestation - Attestation I have personally seen and examined this patient.: Yes I have fully participated in the care of the patient.: Yes I have reviewed all pertinent clinical information: Yes Notes (Text): 01/16/18 16:08 57 yo female with NSTEMI, now s/p PCI with stent in RCA. On integrillin. cont with DAP, statins. bb-ers were held due to initial bradycardia. No expanding hematoma. good ps on both DPAs, even though R>L ccm time 40 min
--- NOTE | 2018-01-16 20:49 | CARDCATH ---
PROCEDURE DATE: 01/16/2018 PROCEDURES: 1. Selective left and right coronary angiography. 2. Left ventriculography. 3. Percutaneous coronary intervention of proximal right coronary artery with drug-eluting stent. 4. Right femoral angiography. 5. Angio-Seal deployment. HISTORY: This is a 57-year-old woman with a history of hypertension, hyperlipidemia, who was admitted with a non-ST segment elevation myocardial infarction, cardiac catheterization was advised. INDICATION: Non-ST segment elevation myocardial infarction. FINDINGS: HEMODYNAMICS: The aortic pressure was 100/70, with left ventricular pressure of 100/15. CORONARY ANATOMY: 1. The left main stem was normal. 2. The left anterior descending artery is mildly calcified in its proximal segment and had a complex 70% stenosis at the take of the first large diagonal branch. This involved the ostium of the diagonal as well. Mild diffuse irregularities are noted in the mid and distal vessels. 3. The left circumflex artery and its branches have mild diffuse irregularities. 4. The right coronary artery was large and dominant. This had a severe 99% proximal stenosis with PERLA grade 2 flow in the vessel. The mid vessel was somewhat ectatic with 30% to 40% stenosis present in the mid segment as well. The posterior descending artery had mild irregularities in the posterior lateral branch, this was large with no significant disease. LEFT VENTRICULOGRAPHY: A hand injection was performed in the left ventricle revealing normal wall motion with ejection fraction of 55%. There was no aortic valve gradient noted on catheter pullback. Mitral regurgitation was not assessed. CORONARY INTERVENTION: A guide catheter was utilized to cannulate the RCA. 3000 units of intravenous heparin was administered which results in ACT of greater than 250 seconds during the procedure. The lesion in the RCA was successfully closed with the use of a cougar wire. Following this, initial placements were performed with a 2.5 x 15 mm balloon for 28 atmospheres for 30 seconds. There was evidence of transient sluggish flow distally and IV nitroglycerin was administered. In addition, IV Integrilin infusion and bolus was initiated. Following this, a 3.5 x 18 mm Resolute Trilla drug-eluting stent was advanced into the proximal RCA and inflated to 14 atmospheres for 45 seconds. There was 0% residual stenosis at the site of the lesion when completed. PERLA flow improved to level 3 following the intervention. The patient did have transient chest pain and hypotension as well as bradycardia during the event, and the decision was made to observe her in the CCU. RIGHT FEMORAL ARTERIORRHAPHY: The right femoral arteriogram was performed in the MUSE projection. This revealed no evidence of significant disease and appropriate level of arterial puncture. The puncture site was then closed with deployment of an Angio-Seal device. CONCLUSION: 1. Severe proximal RCA disease. 2. Moderately severe mid LAD disease. 3. Normal LV systolic function. 4. Successful PCI of proximal RCA with drug-eluting stents as described above. RECOMMENDATIONS: Aspirin and Plavix therapy will be continued for at least 1 year. Aggressive risk factor control utilized. Consideration should be given to stage PCI of the LAD at a later date. Reji Simms MD
[2018-01-17 05:33] LABS: BASO # 0.03 K/mm3 (0.0-2.0); BASO % 0.4 % (0.0-3.0); EOS # 0.8 (0.0-0.7); EOS % 10.3 % (1.5-5.0); GRAN # 4.55 (1.4-6.5); LYMPH # 1.5 (1.2-3.4); LYMPH % 20.4 % (22.0-35.0); MEAN CELL VOLUME 85.7 fl (80.0-105.0); MEAN CORPUSCULAR HEMOGLOBIN 27.9 pg (25.0-35.0); MEAN CORPUSCULAR HGB CONC 32.5 g/dl (31.0-37.0); MONO # 0.6 (0.1-0.6); MONO % 7.9 % (1.0-6.0); RBC 4.2 10^6/uL (3.5-6.1); RED CELL DISTRIBUTION WIDTH 13.9 % (11.5-14.5); WHITE BLOOD COUNT 7.5 10^3/uL (4.5-11.0)
[2018-01-17 05:35] LABS: HEMOGLOBIN 11.7 g/dL (12.0-16.0)
[2018-01-17] MEDS ORDERED: Pantoprazole 40 mg EC Tab PO SCH (06:00)
[2018-01-17] MEDS ORDERED: Levothyroxine 75 MCG TAB PO SCH (06:00)
[2018-01-17 06:20] LABS: CALCIUM 8.7 mg/dL (8.4-10.5)
[2018-01-17] MEDS ORDERED: Metoprolol Succinate 25 mg XL Tab PO SCH (08:00)
[2018-01-17 08:10] VITALS: O2SAT 95
--- NOTE | 2018-01-17 10:08 | PN ---
DATE: 01/17/2018 SUBJECTIVE: The patient is seen lying in bed in the ICU. She is currently comfortable. She has had no chest pain. She underwent PCI of her RCA yesterday. She has no residual chest pain at this time. CURRENT MEDICATIONS: Include Ecotrin, Lipitor, Norvasc, Plavix, Protonix, Synthroid. OBJECTIVE: GENERAL: She is a middle-aged woman who appears comfortable at the present time. VITAL SIGNS: Her blood pressure is 132/50 with a pulse of 60 and respirations are 16. She is afebrile. HEENT: No JVD. CHEST: Clear to auscultation and percussion. HEART: Normal first and second sounds. No pathological murmurs or gallops noted. ABDOMEN: Soft and nontender. Normoactive bowel sounds. EXTREMITIES: No edema. Right groin is clean and dry with no evidence of hematoma. DIAGNOSTIC DATA: White count 7.5, hemoglobin and hematocrit of 11.7 and 36 with platelet count of 322,000. BNP is pending. IMPRESSION: 1. Recent [id number] elevation myocardial infarction. 2. Severe right coronary artery disease. 3. Significant left anterior descending artery disease. 4. Status post successful percutaneous coronary intervention of right coronary artery with drug-eluting stent. 5. Borderline renal insufficiency. 6. History of hypertension. RECOMMENDATIONS: From a cardiac standpoint, she appears stable for discharge home today assuming her renal function remains unchanged. Dual antiplatelet therapy will be continued for at least one year. Resumption of low-dose beta-wandy therapy is advised. The need for aggressive risk factor control was discussed with her. Arrangements will be made for a staged PCI of her LAD in the near future. Outpatient followup has been arranged. Reji Simms MD
[2018-01-17] MEDS: Tmp-Smz 400 mg-80 mg SS Tab PO SCH ×2 (10:52→17:46)
[2018-01-17 13:12] VITALS: BP 124/71; RESP 20; TEMP 98.1
[2018-01-17 16:36] VITALS: PULSE 72
--- NOTE | 2018-01-17 22:02 | CP.PCM.DIS ---
Provider - Provider Date of Admission: 01/12/18 15:53 Attending physician: Alondra Guevara MD Hospital Course - Lab Results Lab Results: Micro Results 01/12/18 16:50 Blood Blood Culture - Final NO GROWTH AFTER 5 DAYS 01/12/18 16:50 Blood Gram Stain - Final TEST NOT PERFORMED 01/12/18 16:23 Blood Blood Culture - Final NO GROWTH AFTER 5 DAYS 01/12/18 16:23 Blood Gram Stain - Final TEST NOT PERFORMED 01/12/18 13:58 Urine Urine Culture - Final Morg Morganii Ss Morganii Most Recent Lab Values WBC 7.5 10^3/uL (4.5-11.0) 01/17/18 05:20 RBC 4.20 10^6/uL (3.5-6.1) 01/17/18 05:20 Hgb 11.7 g/dL (12.0-16.0) L D 01/17/18 05:20 Hct 36.0 % (36.0-48.0) 01/17/18 05:20 MCV 85.7 fl (80.0-105.0) 01/17/18 05:20 MCH 27.9 pg (25.0-35.0) 01/17/18 05:20 MCHC 32.5 g/dl (31.0-37.0) 01/17/18 05:20 RDW 13.9 % (11.5-14.5) 01/17/18 05:20 Plt Count 322 10^3/uL (120.0-450.0) 01/17/18 05:20 MPV 9.0 fl (7.0-11.0) 01/17/18 05:20 Gran % 61.0 % (50.0-68.0) 01/17/18 05:20 Lymph % (Auto) 20.4 % (22.0-35.0) L 01/17/18 05:20 Jenkins % (Auto) 7.9 % (1.0-6.0) H 01/17/18 05:20 Eos % (Auto) 10.3 % (1.5-5.0) H 01/17/18 05:20 Baso % (Auto) 0.4 % (0.0-3.0) 01/17/18 05:20 Gran # 4.55 (1.4-6.5) 01/17/18 05:20 Lymph # (Auto) 1.5 (1.2-3.4) 01/17/18 05:20 Jenkins # (Auto) 0.6 (0.1-0.6) 01/17/18 05:20 Eos # (Auto) 0.8 (0.0-0.7) H 01/17/18 05:20 Baso # (Auto) 0.03 K/mm3 (0.0-2.0) 01/17/18 05:20 PT 10.5 SECONDS (9.4-12.5) 01/15/18 06:00 INR 0.91 01/15/18 06:00 APTT 65.2 Seconds (25.1-36.5) H 01/16/18 06:00 D-Dimer, Quantitative 321 ng/mlDDU (0-243) H 01/12/18 11:11 Sodium 142 mmol/L (132-148) 01/17/18 05:20 Potassium 3.9 mmol/L (3.6-5.0) 01/17/18 05:20 Chloride 115 mmol/L (98-107) H 01/17/18 05:20 Carbon Dioxide 24 mmol/L (21-33) 01/17/18 05:20 Anion Gap 7 (10-20) L 01/17/18 05:20 BUN 16 mg/dL (7-21) 01/17/18 05:20 Creatinine 1.9 mg/dl (0.7-1.2) H 01/17/18 05:20 Est GFR ( Amer) 33 01/17/18 05:20 Est GFR (Non-Af Amer) 27 01/17/18 05:20 Random Glucose 80 mg/dL (70-110) 01/17/18 05:20 Uric Acid 9.4 mg/dL (2.5-6.2) H 01/13/18 08:14 Calcium 8.7 mg/dL (8.4-10.5) 01/17/18 05:20 Total Bilirubin 0.5 mg/dL (0.2-1.3) 01/12/18 11:11 AST 22 U/L (14-36) 01/12/18 11:11 ALT 20 U/L (7-56) 01/12/18 11:11 Alkaline Phosphatase 90 U/L (38-126) 01/12/18 11:11 Lactate Dehydrogenase 399 U/L (333-699) 01/13/18 05:00 Total Creatine Kinase 76 U/L (35-230) 01/13/18 05:00 Troponin I 0.24 ng/mL H* D 01/15/18 06:00 Total Protein 7.6 g/dL (5.8-8.3) 01/12/18 11:11 Albumin 4.1 g/dL (3.0-4.8) 01/12/18 11:11 Globulin 3.5 gm/dL 01/12/18 11:11 Albumin/Globulin Ratio 1.2 (1.1-1.8) 01/12/18 11:11 Triglycerides 178 mg/dL (35-160) H 01/14/18 06:00 Cholesterol 199 mg/dL (130-200) 01/14/18 06:00 LDL Cholesterol Direct 139 mg/dL (0-129) H 01/14/18 06:00 HDL Cholesterol 38 mg/dL (29-60) 01/14/18 06:00 Free T4 1.46 ng/dL (0.78-2.19) 01/12/18 11:11 Free T3 pg/mL 2.67 pg/mL (2.77-5.27) L 01/12/18 13:10 TSH 3rd Generation 1.48 mIU/mL (0.46-4.68) 01/12/18 11:11 Urine Color Light yellow (YELLOW) 01/12/18 11:50 Urine Appearance Sl cloudy (CLEAR) 01/12/18 11:50 Urine pH 6.0 (4.7-8.0) 01/12/18 11:50 Ur Specific [place] 1.010 (1.005-1.035) 01/12/18 11:50 Urine Protein 100 mg/dL (<30 mg/dL) H 01/12/18 11:50 Urine Glucose (UA) Negative mg/dL (NEGATIVE) 01/12/18 11:50 Urine Ketones Negative mg/dL (NEGATIVE) 01/12/18 11:50 Urine Blood Trace-intact (NEGATIVE) H 01/12/18 11:50 Urine Nitrate Negative (NEGATIVE) 01/12/18 11:50 Urine Bilirubin Negative (NEGATIVE) 01/12/18 11:50 Urine Urobilinogen 0.2 E.U./dL (<1 E.U./dL) 01/12/18 11:50 Ur Leukocyte Esterase Moderate Cuauhtemoc/uL (NEGATIVE) H 01/12/18 11:50 Urine RBC 0 - 2 /hpf (0-2) 01/12/18 11:50 Urine WBC 1 - 3 /hpf (0-6) 01/12/18 11:50 Ur Epithelial Cells 3 - 4 /hpf (0-5) 01/12/18 11:50 Urine Bacteria Neg (NEG) 01/12/18 11:50 Discharge Exam - Head Exam Head Exam: ATRAUMATIC, NORMAL INSPECTION, NORMOCEPHALIC Discharge Plan - Discharge Medications Prescriptions: amLODIPine [Norvasc] 5 mg PO DAILY #30 tab Aspirin [Ecotrin] 81 mg PO DAILY #30 tabec Atorvastatin [Lipitor] 40 mg PO DIN #30 tab Clopidogrel [Plavix] 75 mg PO DAILY #30 tab hydroCHLOROthiazide [Hydrodiuril] 25 mg PO DAILY #30 tab Metoprolol Succinate XL [Toprol XL] 25 mg PO BRK #30 tab - Follow Up Plan Condition: STABLE Disposition: HOME/ ROUTINE Instructions: Heart Attack, Coronary Heart Disease, Heart Healthy Diet, Heart Disease in Women (DC), Myocardial Infarction (DC), Myocardial Infarction (GEN), Acute Kidney Injury (DC), Renal Failure Diet (DC) Additional Instructions: You have had drug eluting stent placed in your coronary (heart) artery; you should remain on aspirin and plavix daily for the next 1 year; you should followup with machine rug cleaner Dr. Simms; You have been diagnosed with chronic kidney disease; you should followup with crochet machine operator Dr. Alondra Guevara;
--- NOTE | 2018-01-18 08:24 | CARD ---
APPROVED REPORT Date of service: 01/17/2018 EKG Measurement Heart [id number] <Conclusion> Sinus bradycardia NSSTW changes, new
== END 2018-01-17 18:00 | disposition home or self-care (01) | DRG 247 ==
LOC: ED 10:25 → ERH 15:53 → 3RSO 18:24 → 2RNO 01-13 01:05 → ERH 01-16 08:43 → ICU 01-16 08:55 → 2RNO 01-17 08:31
PROVIDERS: ADMIT Internal Medicine; ATTEND Internal Medicine
PROC: 027034Z Dilation of Coronary Artery, One Artery with Drug-eluting Intraluminal Device, Percutaneous Approach (ICD-10-PCS; principal; 2018-01-16)
PROC: 4A023N7 Measurement of Cardiac Sampling and Pressure, Left Heart, Percutaneous Approach (ICD-10-PCS; 2018-01-16)
PROC: B2151ZZ Fluoroscopy of Left Heart using Low Osmolar Contrast (ICD-10-PCS; 2018-01-16)
PROC: B2111ZZ Fluoroscopy of Multiple Coronary Arteries using Low Osmolar Contrast (ICD-10-PCS; 2018-01-16)
PROC: 3E033PZ Introduction of Platelet Inhibitor into Peripheral Vein, Percutaneous Approach (ICD-10-PCS; 2018-01-16)
DX: I21.4 Non-ST elevation (NSTEMI) myocardial infarction (principal); N17.9 Acute kidney failure, unspecified; N39.0 Urinary tract infection, site not specified; N18.4 Chronic kidney disease, stage 4 (severe); I95.89 Other hypotension; I25.10 Atherosclerotic heart disease of native coronary artery without angina pectoris; I12.9 Hypertensive chronic kidney disease with stage 1 through stage 4 chronic kidney disease, or unspecified chronic kidney disease; M1A.9XX0 Chronic gout, unspecified, without tophus (tophi); E03.9 Hypothyroidism, unspecified; E78.5 Hyperlipidemia, unspecified; F17.210 Nicotine dependence, cigarettes, uncomplicated; F41.1 Generalized anxiety disorder; N20.0 Calculus of kidney; I34.0 Nonrheumatic mitral (valve) insufficiency; M19.90 Unspecified osteoarthritis, unspecified site; R00.1 Bradycardia, unspecified; B96.89 Other specified bacterial agents as the cause of diseases classified elsewhere